=== PATIENT | female | born 1985 | race African-American/Black ===

== ENCOUNTER 2023-06-01 19:21 | Emergency (ER) | payer OTHER, BC ==
[2023-06-01] MEDS ORDERED: Metoclopramide HCl 10 MG/2 ML VIAL ONE (22:22)
[2023-06-01] MEDS ORDERED: Ketorolac Tromethamine 30 MG/ML VIAL ONE (22:22)
== END 2023-06-01 23:28 | disposition home or self-care (01) ==
LOC: CSHERS 19:21
DX: S13.4XXA Sprain of ligaments of cervical spine, initial encounter (principal); M54.50 Low back pain, unspecified; G43.909 Migraine, unspecified, not intractable, without status migrainosus; K21.9 Gastro-esophageal reflux disease without esophagitis; V89.2XXA Person injured in unspecified motor-vehicle accident, traffic, initial encounter
CPT/HCPCS: 70450; 71045; 72100; 72125; 93005; 96374; 96375; J1885; J2765

== ENCOUNTER 2023-06-04 12:20 | Emergency (ER) | payer OTHER, BC ==
[2023-06-04] MEDS ORDERED: fentaNYL 50 mcg/mL 1 mL Vial ONE (13:20)
[2023-06-04] MEDS ORDERED: Lorazepam 2 MG/ML VIAL ONE (13:20)
[2023-06-04] MEDS ORDERED: Dexamethasone 10 MG/ML VIAL ONE (13:20)
[2023-06-04] MEDS ORDERED: Ketorolac Tromethamine 30 MG/ML VIAL ONE (13:20)
== END 2023-06-04 14:27 | disposition home or self-care (01) ==
LOC: CSHERS 12:20
DX: S16.1XXA Strain of muscle, fascia and tendon at neck level, initial encounter (principal); V89.2XXA Person injured in unspecified motor-vehicle accident, traffic, initial encounter
CPT/HCPCS: 96374; 96375; J1100; J1885; J2060; J3010